=== PATIENT | female | born 1985 | race Caucasian/White ===

== ENCOUNTER 2019-02-06 06:54 | Day surgery (SDC) | payer MEDICAID ==
[~2019-02-06] VITALS: Ht 157.5 cm; Wt 78.0 kg
--- NOTE | ~2019-02-06 | OP ---
PATIENT NAME: ALEA SOTO MEDICAL RECORD: [id number] LOCATION:[facility] ADMISSION DATE: SURGEON: BEBETO COREY MD DATE OF OPERATION: 02/06/2019 PREOPERATIVE DIAGNOSES: 1. Biliary dyskinesia. 2. Anxiety. 3. Tobacco dependence syndrome. POSTOPERATIVE DIAGNOSES: 1. Biliary dyskinesia. 2. Anxiety. 3. Tobacco dependence syndrome. PROCEDURE: Laparoscopic cholecystectomy. SURGEON: Bebeto Corey MD REPORT OF PROCEDURE: The patient's abdomen was prepped and draped in sterile fashion. A cutdown was made on the superior aspect of the umbilicus, 0 Vicryls were placed on the fascia bilaterally and the fascia was incised with a 15-blade. I then bluntly entered the peritoneal cavity and placed a 12-mm Sriram port. Under direct visualization, a 5 mm trocar was placed in the epigastrium and 2 more 5-mm trocars were placed in the right subcostal region. The gallbladder was grasped and elevated. The cystic artery and cystic duct were dissected free and these were clipped proximally and distally and ligated in standard fashion. The gallbladder was then taken off the liver bed using electrocautery and placed into the right upper quadrant. Any bleeding from the liver bed was then treated with electrocautery. At this point, the ports and insufflation were then removed and the gallbladder was taken out through the umbilicus. We then inspected the patient's pelvic region because she was having some pain in her lower abdomen. I was able to pull the omentum up and see the pelvis. I saw no signs of any inflammatory changes. The sigmoid colon appeared to be normal with no signs of diverticulitis. The patient's uterus and fallopian tubes appeared to have no signs of inflammation. There was no fluid or purulent material in the pelvis. At this point, the ports and insufflation were completely removed. The umbilical incision was closed with interrupted 0 Vicryls times 3. The wounds were then irrigated out with normal saline and infused with 10 mL of 0.25% Marcaine with epinephrine. The skin incisions were all closed with subcutaneous 5-0 Monocryl and dressed appropriately. COMPLICATIONS: None. CONDITION: Stable. ANESTHESIA: General endotracheal and local. BLOOD LOSS: Minimal. TRANSINT:[id number] Voice Confirmation ID: [id number] DOCUMENT ID: [id number] OPERATIVE REPORT [id number] ALEA SOTO CHRISTIAN MD CC: [facility] [address] [id number] DICTATION DATE: 02/06/191109 INTERNATIONAL TRADE ANALYST: 02/06/19 1326 [facility] [address] [id number]
[~2019-02-06 06:54] MED LIST: CELEXA20 MG PO; SEROQUEL200 MG PO
[2019-02-06 07:21] LABS: HEMATOCRIT 41.4 % (36.0-48.0); HEMOGLOBIN 14.1 g/dL (12-16); LYMPHOCYTES 41.2 % (15-50); MCH 31.4 pg (26.0-34.0); MCHC 34.1 g/dL (31.0-37.0); MCV 92.2 fL (80.0-100.0); MEAN PLATELET VOLUME 9.3 fL (7.4-10.4); NEUTROPHILS 50.7 % (40-80); PLATELET COUNT 354 10x3/uL (130-400); RBC 4.49 10x6/uL (4.00-5.40); RDW 12.9 % (11.5-14.5); WBC 7.2 10x3/uL (4.8-10.8)
[2019-02-06 07:22] LABS: CALC OSMOLALITY 278 mosm/kg (275-300); CALCIUM 9.2 mg/dL (8.5-10.1); CARBON DIOXIDE 29.9 mmol/L (21.0-32.0); CHLORIDE - SERUM 105 mmol/L (98-107); CREATININE - SERUM 0.6 mg/dL (0.6-1.3); GLUCOSE 97 mg/dL (74-106); POTASSIUM - SERUM 4.6 mmol/L (3.5-5.1); SODIUM 141 mmol/L (136-145); UREA NITROGEN 6 mg/dL (7-18); eGFR NON AFRICAN AMERICAN > 90 mL/min (90-120)
[2019-02-06 08:32] LABS: HCG URINE NEGATIVE (NEGATIVE)
[2019-02-06 08:59] VITALS: BP 91/56; Ht 157.5 cm; Wt 78.0 kg
--- NOTE | 2019-02-06 10:53 | NUR ---
PT HAD RING ON LEFT MIDDLE FINGER ON ARRIVAL TO [facility]. ATTEMPTED TO REMOVE PER DIANE. WOULD NOT COME OFF. PT INFORMED OF BURN RISK AND CHOSE TO KEEP THE RING ON INSTEAD OF CUTTING IT OFF.
[2019-02-06] MEDS ORDERED: HYDROCODON-ACE1 EA10 PO (11:05)
== END 2019-02-06 12:50 | disposition home or self-care (01) ==
LOC: D.OPS 06:54 → D.PAN 09:15 → D.OPS 12:45
PROVIDERS: ATTEND Surgery
DX: K82.8 Other specified diseases of gallbladder (principal); F41.9 Anxiety disorder, unspecified; F17.210 Nicotine dependence, cigarettes, uncomplicated